=== PATIENT | female | born 1980 ===

== ENCOUNTER 2018-07-12 05:10 | Inpatient (IN) | payer OTHER ==
--- NOTE | 2018-07-12 05:43 | HP ---
General Information - Reason for Visit Active labor - General Information Maternal Age: 37 Grav: 2 Para: 1 SAB: 0 IEA: 0 Estimated Due Date: 07/14/18 Determined By: Early Ultrasound Gestational Age in Weeks/Days: 39.5 Maternal Blood Type and Rh: A Positive - Results this Rubella Result: Immune HBsAg Result: Negative HIV Result: Negative GBS Culture Result: Negative Past Medical History Delivery History: Hx Uncomplicated Vaginal Delivery Pertinent Past Medical History: See Records - tremor right side Pertinent Past Surgical History: See Records - D&C 2015 Pertinent Family History: See Records - F:DM; M: HTN; Brother: epilepsy; MGF: Lung CA; paternal uncle: DM, dementia - Antepartal Records Antepartal Records: Reviewed, Complicated by: Review of Systems Constitutional: Uncomfortable CV Complaint: No Respiratory: Shortness of Breath: No Gastrointestinal: No Nausea/Vomiting, Normal Bowel Movement Genitourinary: No Dysuria, No Leaking Fluid, Spotting Musculoskeletal: Contractions Neurological: No Headache, No Visual Changes Movement: Normal Exam Allergies/Adverse Reactions: Allergies No Known Allergies Allergy (Verified 07/12/18 05:51) P:75, R:22, BP:119/60 - Measurements Height: 5 ft 1.02 in Weight: 119 lb 0.794 oz Body Mass Index (BMI): 22.4 Pre- Weight: 98 lb - Exam Breast: Breast Exam Deferred CVA: No CVA Tenderness Extremities: No Edema Heart: Normal Rhythm/Heart Sounds HEENT: No Significant Findings Lungs: Clear Bilaterally Rectal: Rectal Exam Deferred Reflexes: DTR 2+ Thyroid: No Thyromegaly - Abdominal Exam Abdomen Exam: Non-Tender, Fundal Height Consistent with Dates - Ultrasound/Biophysical Profile Ultrasound Status: Not Done Targeted Exam Findings Estimated Weight: 7lbs Cervical Exam: 8cm Effacement: 100% Station: 0 Presenting Part: Vertex Membrane Status: Questionable SROM Bleeding/Discharge: Bloody Show EFM Findings - External Monitor Findings Baseline Heart Rate: 130 External Monitor Findings: Accelerations Present, No Pattern of Variable or Late Decelerations, Variability Moderate, Baseline Stable Contractions: Regular, Moderate, 45-90 Seconds Contraction Frequency: 2-3 Assessment/Plan - Assessment 37 y.o. in active labor - Plan Plan: Admit - Anticipate Vaginal Delivery - Date/Time of Admission Date of Admission: 07/12/18 Time of Admission: 06:00
[2018-07-12] MEDS ORDERED: OXYTOCIN* 10 UNITS/ML 1 ML VIAL ONE (06:36)
[2018-07-12] MEDS ORDERED: Acetaminophen TAB* 325 MG PO PRN (06:45)
[2018-07-12] MEDS ORDERED: Witch Hazel PAD* JAR TOPICAL PRN (06:45)
[2018-07-12] MEDS ORDERED: OXYTOCIN* 10 UNITS/ML 1 ML VIAL IM ONE (06:45)
[2018-07-12] MEDS ORDERED: Glycerin ADULT SUPP PR PRN (06:45)
[2018-07-12] MEDS ORDERED: Dibucaine 1% 28.35 GM TUBE PR PRN (06:45)
--- NOTE | 2018-07-12 07:02 | PROCNOTE ---
[facility] OB: Delivery Note - Delivery A Date of : 07/12/18 Time of : 06:06 Sex: Male Score 1 Minute: 9 Score 5 Minutes: 9 Gestational Age in Weeks and Days at Delivery: 39 Weeks and 5 Days Delivery Method: Spontaneous Vaginal Labor: Spontaneous Did Patient attempt ?: N/A, No Previous Amniotic Fluid: Clear Estimated Blood Loss: 400 Anesthesia/Analgesia: None Delivered By: Anita Isidro - Nursery Level of Nursery: Regular/Bedside - Perineum Perineal Injury: None/Intact Perineal Repair: None - Events Delivery Events of Note: Pitocin Only After Delivery - Additional Delivery Notes Additional Delivery Notes: Pt presents in active labor progressed to 10 cm dilated and reported an urge to push. Pt pushed in hands and knees position for 20 minutes delivering spontaneously a living male in OA position restituting to VIBHA, spontaneous delivery of anterior shoulder with effective maternal effort baby delivered to maternal arms, nuchal cord noted and baby delivered through the cord. Weight pending, APGARS 9/9. Spontaneous delivery of an intact placenta after approx 6 minutes. Hemostasis noted, perineum intact. Increase in bleeding, vaginal exam revealing retained placenta and membranes in cervix and removed with traction and fundal massage. Pit given IM. EBL 400. Mother and baby stable anticipate normal course.
[2018-07-12] MEDS ORDERED: Simethicone TAB* 80 MG TAB.CHEW PO SCH (08:30)
[2018-07-12] MEDS ORDERED: Ammonia Inhalant* 1 EA AMP ONE (10:37)
[2018-07-12 13:11] LABS: Hematocrit 33 % (35-47); Hemoglobin 10.9 g/dl (12.0-16.0); Mean Corpuscular HGB Conc 33 g/dl (31-36); Mean Corpuscular Hemoglobin 28 pg (27-31); Mean Corpuscular Volume 84 fL (80-97); Mean Platelet Volume 9.9 fL (7.4-10.4); Platelet Count 157 10^3/ul (150-450); Red Blood Count 3.97 10^6/ul (4.00-5.40); Red Cell Distribution Width 14 % (10.5-15); White Blood Count 21.8 10^3/ul (3.5-10.8)
[2018-07-12] MEDS: Docusate CAP* 100 MG PO SCH ×2 (14:00→21:28)
[2018-07-12] MEDS: Ibuprofen TAB* 600 MG PO PRN (22:39)
[2018-07-13 07:22] LABS: ABS Basophils 0.1 10^3/ul (0-0.2); ABS Eosinophils 0.1 10^3/ul (0-0.6); ABS Lymphocytes 2.6 10^3/ul (1.0-4.8); ABS Monocytes 0.9 10^3/ul (0-0.8); ABS Neutrophils 8.9 10^3/ul (1.5-7.7); ABS Nucleated RBC 0 10^3/ul; Eosinophil % 0.8 %; Hematocrit 31 % (35-47); Hemoglobin 10.1 g/dl (12.0-16.0); Lymphocyte % 20.5 %; Mean Corpuscular HGB Conc 33 g/dl (31-36); Mean Corpuscular Hemoglobin 28 pg (27-31); Mean Corpuscular Volume 85 fL (80-97); Mean Platelet Volume 9.8 fL (7.4-10.4); Nucleated Red Blood Cells % 0; Platelet Count 148 10^3/ul (150-450); Red Blood Count 3.61 10^6/ul (4.00-5.40); Red Cell Distribution Width 14 % (10.5-15); White Blood Count 12.5 10^3/ul (3.5-10.8)
[2018-07-13] MEDS ORDERED: Ferrous Gluconate TAB* 324 MG TAB PO SCH (09:00)
[2018-07-13] MEDS: Docusate CAP* 100 MG PO SCH ×3 (09:57→22:16)
[2018-07-13] MEDS: Ibuprofen TAB* 600 MG PO PRN (11:34)
[2018-07-14] MEDS: Docusate CAP* 100 MG PO SCH (09:43)
[2018-07-14 10:04] VITALS: BP 107/64
== END 2018-07-14 13:20 | disposition home or self-care (01) | DRG 806 ==
LOC: MCHOBOUT 05:10 → MCHOB 05:34
PROVIDERS: ADMIT Midwife; ATTEND Midwife
PROC: 10E0XZZ Delivery of Products of Conception, External Approach (ICD-10-PCS; principal; 2018-07-12)
PROC: 10D17Z9 Manual Extraction of Products of Conception, Retained, Via Natural or Artificial Opening (ICD-10-PCS; 2018-07-12)
DX: O69.81X0 Labor and delivery complicated by cord around neck, without compression, not applicable or unspecified (principal); O72.2 Delayed and secondary postpartum hemorrhage; Z37.0 Single live birth; O77.0 Labor and delivery complicated by meconium in amniotic fluid; Z3A.39 39 weeks gestation of pregnancy
CPT/HCPCS: 36415; 85025; 85027; A9270-GY; J2590